=== PATIENT | male | born 1985 | race Caucasian/White ===

== ENCOUNTER 2022-09-02 19:46 | Emergency (ER) | payer OTHER ==
[2022-09-02 19:52] VITALS: BP 130/90; PULSE 110; RESP 18; TEMP 97.8; BMI 34.0
[2022-09-02] MEDS ORDERED: KETOROLAC TROMETHAMINE 30 MG/1 ML VIAL IM ONE (20:22)
[2022-09-02] MEDS ORDERED: KETOROLAC TROMETHAMINE 30 MG/1 ML VIAL ONE (20:23)
== END 2022-09-02 20:38 | disposition home or self-care (01) ==
LOC: JERFT 19:46
PROC: 3E0233Z Introduction of Anti-inflammatory into Muscle, Percutaneous Approach (ICD-10-PCS; principal; 2022-09-02)
DX: M25.562 Pain in left knee (principal); W19.XXXA Unspecified fall, initial encounter; Y93.66 Activity, soccer; Y92.322 Soccer field as the place of occurrence of the external cause
CPT/HCPCS: 99284-25